=== PATIENT | male | born 1980 | race African-American/Black ===

== ENCOUNTER 2022-07-20 22:53 | Emergency (ER) | payer BC, OTHER ==
[~2022-07-20] VITALS: Ht 188 cm; Wt 70.3 kg
[2022-07-20 23:12] VITALS: BP_SYST 156
[2022-07-21] MEDS ORDERED: DIPHTH,PERTUSS(ACELL),TET VAC 0.5 ML VIAL (Tdap) I.M. ONE (00:15)
[2022-07-21 02:22] VITALS: BP_SYST 142
== END 2022-07-21 01:03 | disposition home or self-care (01) ==
LOC: SED 22:53
DX: S61.227A Laceration with foreign body of left little finger without damage to nail, initial encounter (principal); Z79.899 Other long term (current) drug therapy; W31.82XA Contact with other commercial machinery, initial encounter; Y93.89 Activity, other specified; Y92.89 Other specified places as the place of occurrence of the external cause; Y99.8 Other external cause status
CPT/HCPCS: 73140-TC; 90715; 99283